=== PATIENT | female | born 1950 | race Caucasian/White ===

== ENCOUNTER → 2017-08-23 | Outpatient (CLI) | payer MEDICARE ==
[~2017-08-23] MED LIST: INTE30KI4 IM; LEVE500T53 PO; PARO40TA61 PO; TIZA4CAP PO
== END | disposition home or self-care (01) ==
LOC: CFH 10:04
PROVIDERS: ATTEND Internal Medicine
DX: J43.9 Emphysema, unspecified (principal); K80.20 Calculus of gallbladder without cholecystitis without obstruction
CPT/HCPCS: 71250

== ENCOUNTER → 2017-08-23 | Outpatient (CLI) | payer MEDICARE | LOC: STAR 07:52 | PROVIDERS: ATTEND Internal Medicine | DX: Z01.818 Encounter for other preprocedural examination (principal); R91.8 Other nonspecific abnormal finding of lung field; R00.1 Bradycardia, unspecified | CPT/HCPCS: 93005 ==

== ENCOUNTER 2017-08-28 07:59 | Day surgery (SDC) | payer MEDICARE ==
[~2017-08-28] VITALS: Ht 167.6 cm; Wt 55.5 kg
[2017-08-28] MEDS ORDERED: LACTATED RINGERS 1,000 ML IV SCH (08:31)
[2017-08-28 08:33] VITALS: BP 122/81
[2017-08-28] MEDS ORDERED: LIDOCAINE-MPF 1%, 2ML INFIL ONE (09:00)
[2017-08-28] MEDS ORDERED: MIDAZOLAM 1 MG/ML, 2ML ONE (09:47)
[2017-08-28] MEDS ORDERED: FENTANYL PF 100 MCG/2ML ONE ×2 (09:47→12:07)
[2017-08-28] MEDS ORDERED: LIDOCAINE GEL 2%, 5ML ONE (09:51)
[2017-08-28] MEDS ORDERED: DEXAMETHASONE 4 MG/ML, 1ML ONE ×2 (09:59→10:16)
[2017-08-28] MEDS ORDERED: PROPOFOL 10 MG/ML, 20ML ONE (10:16)
[2017-08-28] MEDS ORDERED: hydrALAzine 20 MG/ML, 1ML ONE (11:50)
[2017-08-28] MEDS ORDERED: ALBUTEROL SULFATE 2.5 MG/3 ML NPPB PRN (12:00)
[2017-08-28] MEDS ORDERED: ONDANSETRON ODT 8 MG PO PRN (12:00)
[2017-08-28] MEDS ORDERED: MIDAZOLAM 1 MG/ML, 2ML IV PRN (12:00)
[2017-08-28] MEDS ORDERED: hydrALAzine 20 MG/ML, 1ML IV PRN (12:00)
[2017-08-28] MEDS ORDERED: LABETALOL 5MG/ML, 20ML IV PRN (12:00)
[2017-08-28] MEDS ORDERED: PROMETHAZINE 12.5 MG SUPP PR PRN (12:00)
[2017-08-28] MEDS ORDERED: OXYcodone 5 MG/5 ML ORAL.SOL UDC PO PRN (12:00)
[2017-08-28] MEDS ORDERED: PROMETHAZINE 25 MG/ML, 1ML IV PRN (12:00)
[2017-08-28] MEDS ORDERED: MORPHINE SULFATE 4 MG/ML, 1ML IVPush PRN (12:00)
[2017-08-28] MEDS ORDERED: MEPERIDINE/PF 25MG/0.5ML IVPush PRN (12:00)
[2017-08-28] MEDS ORDERED: ACETAMINOPHEN 325 MG TABLET PO PRN (12:00)
[2017-08-28] MEDS ORDERED: ACETAMINOPHEN 325 MG TABLET ONE (12:07)
[2017-08-28] MEDS ORDERED: ACETAMINOPHEN 650 MG/20.3 ML UDC ONE (12:07)
[2017-08-28] MEDS: FENTANYL PF 100 MCG/2ML IV PRN ×4 (12:09→12:28)
== END 2017-08-28 15:00 ==
LOC: OUT 07:59
PROVIDERS: ATTEND Internal Medicine
DX: C34.12 Malignant neoplasm of upper lobe, left bronchus or lung (principal); G35 Multiple sclerosis; F33.0 Major depressive disorder, recurrent, mild; Z87.891 Personal history of nicotine dependence
CPT/HCPCS: 31628; 31629; 71045; 76001; 88172; 88173; 88177; 88305; 88341; 88342; J0360; J1100; J2250; J2704; J3010; J7120; 31627; G0461

== ENCOUNTER → 2017-09-03 | Outpatient (CLI) | payer MEDICARE | END | disposition home or self-care (01) | LOC: PETCFH 13:59 | PROVIDERS: ATTEND Family Medicine | DX: R91.1 Solitary pulmonary nodule (principal) | CPT/HCPCS: 78815; A9552 ==

== ENCOUNTER → 2017-09-12 | Outpatient (CLI) | payer MEDICARE | END | disposition home or self-care (01) | LOC: CARD 14:05 | PROVIDERS: ATTEND Internal Medicine | DX: J45.909 Unspecified asthma, uncomplicated (principal); R91.8 Other nonspecific abnormal finding of lung field | CPT/HCPCS: 94060; 94726; 94729 ==